=== PATIENT | female | born 1945 | race Hispanic/Latino ===

== ENCOUNTER 2018-11-28 21:45 | Inpatient (IN) | payer MEDICARE, OTHER ==
[~2018-11-28] VITALS: Ht 162.6 cm; Wt 95.0 kg
[2018-11-28] MEDS ORDERED: SODIUM CHLORIDE 0.9% 1000ML 1,000 ML IV STA (22:14)
[2018-11-28] MEDS ORDERED: CEFTRIAXONE SOD 1 GM/NS 50 ML 50 ML IV ONE (22:30)
[2018-11-28] MEDS ORDERED: ONDANSETRON HCL INJ 2MG/ML 2ML 2 MG/ML VIAL IV PRN (23:30)
[2018-11-29] VITALS (10 sets, daily range): BP systolic 120–177; BP diastolic 56–78
[2018-11-29] MEDS ORDERED: SODIUM CHLORIDE 0.9% 1000ML 1,000 ML IV STA (00:03)
--- NOTE | 2018-11-29 00:11 | Diagnostic Imaging Report ---
EXAMINATION: Chest PA and lateral views INDICATION: Fever. ^[id number] ^[id number] COMPARISON: None FINDINGS: TUBES and LINES: None. LUNGS: Mild patchy density in the retrocardiac region may represent developing pneumonia in the proper clinical setting. PLEURA: No pleural effusion or pneumothorax. HEART AND MEDIASTINUM: The cardiomediastinal silhouette is unremarkable. There are atherosclerotic calcifications within the aorta. BONES AND SOFT TISSUES: No acute osseous lesion. Soft tissues are unremarkable. UPPER ABDOMEN: No free air under the diaphragm. IMPRESSION: Mild patchy density in the retrocardiac region may represent developing pneumonia in the proper clinical setting. Signed by: Dr. Yessenia Thayer M.D. on 11/29/2018 12:08 AM
[2018-11-29] MEDS: ACETAMINOPHEN 325 MG TAB PO PRN ×4 (00:37→20:51)
[2018-11-29] MEDS ORDERED: DEXTROSE 50% SYRINGE 50 ML IV PRN ×2 (01:00→10:30)
[2018-11-29] MEDS: SODIUM CHLORIDE 0.9% 1000ML 1,000 ML IV SCH ×3 (02:00→20:51)
--- NOTE | 2018-11-29 02:15 | NUR ---
Patient received via stretcher from [facility] accompanied by daughter. Admission history obtained and Initial physical assessment performed. Patient is AAO x 3. Patient had complaints of generalized pain of 3/10. Respirations even and non-labored. Patient oriented to room, call light and plan of care. IVF infusing at 125 cc/ hr. Vital signs WNL. Fall precautions implemented. Patient instructed to call for assistance when needed. Call light within reach.
[2018-11-29] MEDS ORDERED: CLONIDINE HCL0.1 MG PO (04:50)
[2018-11-29] MEDS ORDERED: CRESTOR10 MG PO (04:50)
[2018-11-29] MEDS ORDERED: ALENDRONATE SOD70 MG (04:50)
[2018-11-29] MEDS ORDERED: LORATADINE10 MG PO (04:50)
[2018-11-29] MEDS ORDERED: BENICAR HCT 401 EACH PO (04:50)
[2018-11-29] MEDS ORDERED: GLIMEPIRIDE2 MG PO (04:50)
[2018-11-29] MEDS ORDERED: CELEBREX100 MG PO (04:50)
[2018-11-29] MEDS ORDERED: HYDROCHLOROTHIAZIDE PO (04:50)
[2018-11-29] MEDS ORDERED: METFORMIN HCL500 MG PO (04:50)
[2018-11-29] MEDS ORDERED: OLMESARTAN PO (04:50)
[2018-11-29] MEDS ORDERED: DEXILANT60 MG PO (04:50)
[2018-11-29] MEDS ORDERED: JANUVIA100 MG PO (04:50)
[2018-11-29] MEDS ORDERED: [UNRECOGNIZED DRUG - OTHER] (04:50)
[2018-11-29 05:36] LABS: BASOPHILS # (AUTO) 0.1 (0.0-0.1); BASOPHILS % 0.4 % (0.0-1.0); EOSINOPHILS % 0.2 % (0.0-6.0); HEMATOCRIT 36.4 % (34.2-44.1); HEMOGLOBIN 11.8 g/dL (12.0-16.0); LYMPHOCYTES # (AUTO) 1.3 (1.0-3.2); LYMPHOCYTES % 7.9 % (18.0-39.1); MEAN CORPUSCULAR HEMOGLOBIN 27.2 pg (28-32); MEAN CORPUSCULAR HGB CONC 32.4 g/dL (31-35); MEAN CORPUSCULAR VOLUME 83.9 fL (81-99); MONOCYTES # (AUTO) 1.4 (0.2-0.8); MONOCYTES % 8.5 % (4.4-11.3); NEUTROPHILS # (AUTO) 13.3 (2.1-6.9); NEUTROPHILS % 82.6 % (38.7-80.0); PLATELET COUNT 208 x10e3/uL (140-360); RED BLOOD COUNT 4.34 x10e6/uL (3.6-5.1); RED CELL DISTRIBUTION WIDTH 13.6 % (11.7-14.4)
[2018-11-29 05:55] LABS: ALANINE AMINOTRANSFERASE 15 IU/L (0-55); ALBUMIN 2.9 g/dL (3.5-5.0); ALBUMIN/GLOBULIN RATIO 0.7 (0.8-2.0); ALKALINE PHOSPHATASE 61 IU/L (40-150); ANION GAP 14.8 mmol/L (8-16); BLOOD UREA NITROGEN 18 mg/dL (7-26); BUN/CREATININE RATIO 20 (6-25); CALCIUM 9.3 mg/dL (8.4-10.2); CARBON DIOXIDE 23 mmol/L (22-29); CHLORIDE 103 mmol/L (98-107); CREATININE, SERUM 0.88 mg/dL (0.57-1.11); EST GLOMERULAR FILTRATION RATE > 60 ML/MIN (60-); GLUCOSE 167 mg/dL (74-118); POTASSIUM 3.8 mmol/L (3.5-5.1); SODIUM 137 mmol/L (136-145)
--- NOTE | 2018-11-29 07:02 | NUR ---
Received patient mid fowlers position, side rails upx2, call light within reach, daughter at bedside. Resting with eyes closed. Arousable to verbal stimuli. Respirations even and unlabored. Will continue to monitor.
[2018-11-29] MEDS ORDERED: INSULIN REGULAR, HUMAN 100 UNIT/1 ML 3ML VIAL SQ SCH (07:30)
[2018-11-29] MEDS ORDERED: ACETAMINOPHEN 325 MG TAB PO PRN (10:30)
[2018-11-29] MEDS ORDERED: ACETAMINOPHEN/CODEINE 300MG - 30MG TAB PO PRN (10:30)
[2018-11-29] MEDS ORDERED: ONDANSETRON HCL 4 MG ORAL DISINTEGRATING TAB PO PRN (10:45)
[2018-11-29] MEDS: INSULIN LISPRO 100 UNIT/1 ML 3ML VIAL SQ SCH ×3 (12:15→23:20)
[2018-11-29] MEDS: CEFTRIAXONE SOD 1 GM/NS 50 ML 50 ML IV SCH (12:15)
--- NOTE | 2018-11-29 13:40 | NUR ---
Patient vomited. PRN zofran given.
--- NOTE | 2018-11-29 14:10 | NUR ---
Resting in bed with eyes closed. No s/s of acute distress noted
--- NOTE | 2018-11-29 16:20 | Diagnostic Imaging Report ---
History: Upper back pain x2 weeks Comparison studies: None Technique: Axial were obtained without IV contrast through the thoracic region. Coronal and sagittal images reconstructed from the axial data. Dose modulation, iterative reconstruction, and/or weight based adjustment of the mA/kV was utilized to reduce the radiation dose to as low as reasonably achievable. Intravenous contrast: None Findings: Alignment: Increased kyphosis. No scoliosis. Soft tissues: Atherosclerotic calcifications in the aorta. Partially visualized surgical clips in the partially visualized right upper quadrant Punctate calcifications in the partially visualized spleen. Paraspinal muscles: Unremarkable Spinal cord: Can not be evaluated. Vertebrae: The bones are moderately demineralized. Mild nonspecific compression deformities are seen from T6 through T10 at the apex of the kyphosis. No acute fractures, infection or neoplasm. Degenerative changes: Mildly degenerated from T2-L2, worse anteriorly from T9 to T11. The facets are degenerated throughout the thoracic region. No significant spinal canal stenosis in the thoracic region but the canal is mildly stenotic at L1-L2 due to a disc bulge and facet arthrosis. Mild foraminal stenosis bilaterally from T6 through T9 is due to facet osteophytes. There are degenerative changes between the spinous processes from T7 through T10 and at T12-L1. IMPRESSION: 1. No acute abnormalities. 2. Bones are diffusely demineralized. 3. Subtle compression deformities are seen from T6 -T10 at the apex of a mildly exaggerated kyphosis. 4. Degenerative changes of the disks, facets and interspinous processes described. 5. Mild degenerative foraminal stenosis from T6 to T9 but no significant canal stenosis. Signed by: Dr. Satish Mills M.D. on 11/29/2018 4:17 PM
--- NOTE | 2018-11-29 16:50 | NUR ---
Beverley Escalera [employer] aware T100.1. Pending blood cultures Addendum: 11/29/18 at 1703 by VNII GRACE RN blood culture results
--- NOTE | 2018-11-29 19:10 | NUR ---
Report given to oncoming nurse of patient's status. Resting in bed. No s/s of acute distress noted.
--- NOTE | 2018-11-29 19:40 | NUR ---
Patient visited in room during nursing rounds. Patient alert and oriented x3 and maltese speaking only. Family at bedside visiting. Patient appear weak and warm to touch. Vital sign to be checked. On IVF (NS at 125ml/hr) and on scheduled IV antibiotic. Up ad april with assistance using walker in room. Call branch within reach.
[2018-11-29] MEDS: SIMVASTATIN 40 MG TAB PO SCH (20:51)
[2018-11-29] MEDS: HYDRALAZINE HCL 20 MG/ML VIAL IV PRN (20:54)
[2018-11-30] VITALS (8 sets, daily range): BP systolic 117–169; BP diastolic 60–77
[2018-11-30] MEDS: SODIUM CHLORIDE 0.9% 1000ML 1,000 ML IV SCH (03:58)
[2018-11-30 05:49] LABS: BASOPHILS # (AUTO) 0.1 (0.0-0.1); BASOPHILS % 0.5 % (0.0-1.0); EOSINOPHILS # (AUTO) 0.1 (0.0-0.4); EOSINOPHILS % 0.8 % (0.0-6.0); HEMATOCRIT 33.2 % (34.2-44.1); HEMOGLOBIN 11.1 g/dL (12.0-16.0); LYMPHOCYTES % 15.2 % (18.0-39.1); MEAN CORPUSCULAR HEMOGLOBIN 27.9 pg (28-32); MEAN CORPUSCULAR HGB CONC 33.4 g/dL (31-35); MEAN CORPUSCULAR VOLUME 83.4 fL (81-99); MONOCYTES # (AUTO) 1.3 (0.2-0.8); MONOCYTES % 10.4 % (4.4-11.3); NEUTROPHILS # (AUTO) 9.4 (2.1-6.9); NEUTROPHILS % 72.7 % (38.7-80.0); PLATELET COUNT 190 x10e3/uL (140-360); RED BLOOD COUNT 3.98 x10e6/uL (3.6-5.1); RED CELL DISTRIBUTION WIDTH 13.8 % (11.7-14.4)
[2018-11-30 06:11] LABS: ANION GAP 13.5 mmol/L (8-16); BLOOD UREA NITROGEN 9 mg/dL (7-26); BUN/CREATININE RATIO 12 (6-25); CALCIUM 8.3 mg/dL (8.4-10.2); CARBON DIOXIDE 22 mmol/L (22-29); CHLORIDE 106 mmol/L (98-107); CREATININE, SERUM 0.77 mg/dL (0.57-1.11); EST GLOMERULAR FILTRATION RATE > 60 ML/MIN (60-); GLUCOSE 156 mg/dL (74-118); MAGNESIUM 1.2 MG/DL (1.3-2.1); POTASSIUM 3.5 mmol/L (3.5-5.1); SODIUM 138 mmol/L (136-145)
[2018-11-30 06:16] LABS: B-TYPE NATRIURETIC PEPTIDE2 190.5 pg/mL (0-100)
[2018-11-30 06:38] LABS: FREE T4 (FREE THYROXINE) 0.99 ng/dL (0.9-1.8); THYROID STIMULATING HORMONE 0.791 uIU/mL (0.350-4.940)
--- NOTE | 2018-11-30 07:00 | NUR ---
The pt. was received from the off-going nurse sitting on the bedside. The pt. speaks very little Gabonese but family is at the bedside and translates for her.
[2018-11-30] MEDS: INSULIN LISPRO 100 UNIT/1 ML 3ML VIAL SQ SCH ×4 (07:30→20:59)
[2018-11-30] MEDS: PANTOPRAZOLE SOD 40 MG TABEC PO SCH (07:30)
[2018-11-30] MEDS ORDERED: MAGNESIUM SULF 1GRAM/DEXTROSE 100 ML IV ONE (08:00)
--- NOTE | 2018-11-30 08:23 | Diagnostic Imaging Report ---
Renal ultrasound dated 11/30/2018. History: Urinary tract infection Discussion: Transverse and longitudinal images of the kidneys were obtained demonstrating normal renal sizes and echogenicities. There is no evidence of hydronephrosis, mass or renal calculus. The right kidney measures 11.4 x 5.8 x 5.1 cm and the left kidney measures 9.7 x 5.7 x 3.8 cm. No fluid collections identified. The urinary bladder is unremarkable. There is no evidence of free fluid. IMPRESSION: Normal renal ultrasound. Signed by: Dr. Vladimir Terry DO on 11/30/2018 8:20 AM
[2018-11-30] MEDS: GLIMEPIRIDE 2 MG TAB PO SCH (08:55)
[2018-11-30] MEDS: OLMESARTAN 20 MG TAB PO SCH (08:56)
[2018-11-30] MEDS: CELECOXIB 100 MG CAP PO SCH (08:56)
[2018-11-30] MEDS: HYDROCHLOROTHIAZIDE 25 MG TAB PO SCH (08:56)
[2018-11-30] MEDS: SITAGLIPTIN 100 MG TAB PO SCH (08:56)
[2018-11-30] MEDS: OYST-CAL-D 500MG TABLET PO SCH ×2 (09:02→17:14)
[2018-11-30] MEDS: CEFTRIAXONE SOD 1 GM/NS 50 ML 50 ML IV SCH (12:22)
--- NOTE | 2018-11-30 16:35 | NUR ---
IMM letter delivered and explained to pt and her daughter at bedside. They verbalized understanding. Pt asked her daughter to sign. Signed copy placed in chart. Copy was given to pt's daughter. Anticipate DC tomorrow. Pending final urine culture.
[2018-11-30] MEDS: SIMVASTATIN 40 MG TAB PO SCH (21:00)
[2018-11-30] MEDS: HYDRALAZINE HCL 20 MG/ML VIAL IV PRN (21:01)
[2018-11-30] MEDS: ACETAMINOPHEN 325 MG TAB PO PRN (23:32)
[2018-12-01] VITALS: BP 136/62
[2018-12-01 04:00] VITALS: BP 154/72
[2018-12-01 06:17] LABS: BASOPHILS # (AUTO) 0.1 (0.0-0.1); BASOPHILS % 0.7 % (0.0-1.0); EOSINOPHILS # (AUTO) 0.7 (0.0-0.4); EOSINOPHILS % 8.1 % (0.0-6.0); HEMATOCRIT 33.8 % (34.2-44.1); HEMOGLOBIN 10.9 g/dL (12.0-16.0); LYMPHOCYTES # (AUTO) 1.7 (1.0-3.2); LYMPHOCYTES % 19.9 % (18.0-39.1); MEAN CORPUSCULAR HEMOGLOBIN 27.3 pg (28-32); MEAN CORPUSCULAR HGB CONC 32.2 g/dL (31-35); MEAN CORPUSCULAR VOLUME 84.5 fL (81-99); MONOCYTES # (AUTO) 1.1 (0.2-0.8); MONOCYTES % 13.1 % (4.4-11.3); NEUTROPHILS # (AUTO) 5.1 (2.1-6.9); NEUTROPHILS % 57.9 % (38.7-80.0); PLATELET COUNT 196 x10e3/uL (140-360)
[2018-12-01 06:34] LABS: ANION GAP 10.6 mmol/L (8-16); BLOOD UREA NITROGEN 10 mg/dL (7-26); BUN/CREATININE RATIO 13 (6-25); CALCIUM 8.6 mg/dL (8.4-10.2); CARBON DIOXIDE 26 mmol/L (22-29); CHLORIDE 106 mmol/L (98-107); CREATININE, SERUM 0.75 mg/dL (0.57-1.11); EST GLOMERULAR FILTRATION RATE > 60 ML/MIN (60-); GLUCOSE 129 mg/dL (74-118); MAGNESIUM 1.8 MG/DL (1.3-2.1); POTASSIUM 3.6 mmol/L (3.5-5.1); SODIUM 139 mmol/L (136-145)
--- NOTE | 2018-12-01 07:30 | NUR ---
REC'D PATIENT IN THE RESTROOM. DAUGHTER AT BEDSIDE. NO S/S OF DISTRESS NOTED. BED IN LOWEST POSITION, SIDE RAILS UP X2, AND CALL NAYAK WITHIN REACH.
[2018-12-01 08:39] VITALS: BP 179/80
[2018-12-01] MEDS: GLIMEPIRIDE 2 MG TAB PO SCH (09:22)
[2018-12-01] MEDS: OLMESARTAN 20 MG TAB PO SCH (09:22)
[2018-12-01] MEDS: PANTOPRAZOLE SOD 40 MG TABEC PO SCH (09:22)
[2018-12-01] MEDS: SITAGLIPTIN 100 MG TAB PO SCH (09:23)
[2018-12-01] MEDS: CELECOXIB 100 MG CAP PO SCH (09:23)
[2018-12-01] MEDS: HYDROCHLOROTHIAZIDE 25 MG TAB PO SCH (09:23)
[2018-12-01] MEDS: OYST-CAL-D 500MG TABLET PO SCH (09:23)
[2018-12-01] MEDS: INSULIN LISPRO 100 UNIT/1 ML 3ML VIAL SQ SCH (09:36)
[2018-12-01 12:05] VITALS: BP 153/71
[2018-12-01] MEDS ORDERED: SODIUM CHLORIDE 0.9% 1000ML 1,000 ML ONE (13:30)
[2018-12-01] MEDS ORDERED: CIPROFLOXACIN500 MG PO (15:16)
[2018-12-01] MEDS ORDERED: Calcium Carbonate PO (15:16)
[2018-12-01 17:06] VITALS: BP 166/69
--- NOTE | 2018-12-02 06:58 | Discharge Summary ---
PERTINENT HISTORY AND PHYSICAL FINDINGS: Ms. Maurice Richter is a [id number], who was admitted with complaints of upper back pain, which was sharp and intermitted, beginning Friday prior to admission. Due to her history of frequent urinary tract fractions her family thought that she had a UTI. She denied dysuria or hematuria, and had persistent frequency and that Friday she was weak and had a fever of 104, so her family brought her to the emergency department. PAST MEDICAL HISTORY: Significant for hypertension, hyperlipidemia, type 2 diabetes mellitus, osteoarthritis, and gastroesophageal reflux disease. PAST SURGICAL HISTORY: Positive for cholecystectomy. FAMILY HISTORY: Her daughter is diabetic. ALLERGIES: SHE HAS NO KNOWN ALLERGIES. ADMITTING DIAGNOSES: Include: 1. Urinary tract infection with sepsis. 2. Hypertension. 3. Hyperlipidemia. 4. Type 2 diabetes mellitus. 5. Gastroesophageal reflux disease. 6. Osteoarthritis. 7. Obesity. DISCHARGE DIAGNOSES: 1. Sepsis due to urinary tract infection. 2. Urinary tract infection due to Klebsiella pneumoniae, ampicillin resistant, present on arrival. 3. Acute hypomagnesemia. 4. Controlled hypertension. 5. Hyperlipidemia. 6. Controlled type 2 diabetes mellitus. 7. Gastroesophageal reflux disease. 8. Osteoarthritis. CONSULTATIONS: There were no consultations during this admission. PERTINENT LABORATORY DATA: On November 29, wbc 16.13, which improved to 12.92 on the , and today on the day of discharge wbc is 8.73. Also today, hemoglobin 10.9, hematocrit 33.8, platelets 196. BUN 10, creatinine 0.75, GFR greater than 60. Magnesium 1.8. On the , BUN 18, creatinine 0.88, GFR greater than 60. Lactic acid on the was 25.4. Magnesium level on November 30 was 1.2. Final urine culture showed klebsiella pneumoniae greater than 100,000 CFU per millimeter, which is nearly pansensitive only resistant to ampicillin. Blood cultures did not show any growth after 48 hours. Renal ultrasound yesterday was negative. Chest x-ray on admission showed mild patchy density in the retrocardiac region, possible developing pneumonia in the perfect clinical setting. Thoracic spine CT done on the showed no acute abnormalities. DIET: The patient is to continue ADA diet. Tips given on portion control, drink small water. FOLLOWUP: The patient is to follow up with her PCP Dr. Raffi Price in 1 to 2 weeks. ACTIVITY LEVEL: As tolerated. I will discharge with Cipro 500 mg p.o. b.i.d. for 7 days and calcium carbonate 500 mg p.o. b.i.d. Dictated by Eb Díaz, CARGO ROUTER MD BLAIRE GomezP/MODL /[id number]
== END 2018-12-01 17:41 | disposition home or self-care (01) | DRG 872 ==
LOC: FSED 21:45 → ERHOLD 23:37 → MED/SURG2 11-29 01:30
PROVIDERS: ADMIT Internal Medicine; ATTEND Internal Medicine
DX: A41.9 Sepsis, unspecified organism (principal); N39.0 Urinary tract infection, site not specified; B96.1 Klebsiella pneumoniae [K. pneumoniae] as the cause of diseases classified elsewhere; Z16.11 Resistance to penicillins; I10 Essential (primary) hypertension; K21.9 Gastro-esophageal reflux disease without esophagitis; M19.90 Unspecified osteoarthritis, unspecified site; E83.42 Hypomagnesemia; E66.9 Obesity, unspecified; Z68.36 Body mass index [BMI] 36.0-36.9, adult; E11.9 Type 2 diabetes mellitus without complications; Z87.440 Personal history of urinary (tract) infections; Z90.49 Acquired absence of other specified parts of digestive tract; M40.209 Unspecified kyphosis, site unspecified
CPT/HCPCS: 36415; 71046; 72128; 76770; 80048; 80053; 81003; 82553; 82948; 83036; 83605; 83690; 83735; 83880; 84439; 84443; 84484; 85025; 87040; 87086; 87186; 87400; 93005; 99284; J0360; J0696; J3475; J7030

== ENCOUNTER 2021-12-08 10:52 | Emergency (ER) | payer MEDICARE ==
[~2021-12-08] VITALS: Ht 162.6 cm; Wt 88.0 kg
[~2021-12-08 10:52] MED LIST: ALENDRONATE SOD70 MG; BENICAR HCT 401 EACH PO; CELEBREX100 MG PO; CIPROFLOXACIN500 MG PO; CLONIDINE HCL0.1 MG PO; CRESTOR10 MG PO; Calcium Carbonate PO; DEXILANT60 MG PO; GLIMEPIRIDE2 MG PO; HYDROCHLOROTHIAZIDE PO; JANUVIA100 MG PO; LORATADINE10 MG PO; METFORMIN HCL500 MG PO; OLMESARTAN PO; [UNRECOGNIZED DRUG - OTHER]
[2021-12-08] MEDS ORDERED: ONDANSETRON HCL 4 MG ORAL DISINTEGRATING TAB PO ONE (11:15)
[2021-12-08] MEDS ORDERED: ONDANSETRON ODT4 MG PO (11:34)
[2021-12-08] MEDS ORDERED: ACETAMINOPHEN-1 EAC4 PO (11:34)
[2021-12-08] MEDS ORDERED: HYDROCODONE/APAP 5MG-325MG TAB ONE (11:55)
[2021-12-08] MEDS ORDERED: HYDROCODONE/APAP 5MG-325MG TAB PO ONE (12:00)
== END 2021-12-08 12:40 | disposition home or self-care (01) ==
LOC: FSED 11:16
DX: S20.212A Contusion of left front wall of thorax, initial encounter (principal); W22.8XXA Striking against or struck by other objects, initial encounter; Y92.092 Bedroom in other non-institutional residence as the place of occurrence of the external cause; I10 Essential (primary) hypertension; E11.9 Type 2 diabetes mellitus without complications; E78.5 Hyperlipidemia, unspecified; K21.9 Gastro-esophageal reflux disease without esophagitis; M81.8 Other osteoporosis without current pathological fracture
CPT/HCPCS: 71101; 99283